=== PATIENT | female | born 1975 ===

== ENCOUNTER 2017-07-09 00:30 | Emergency (ER) | payer SELFPAY ==
[2017-07-09 00:54] VITALS: RESP 18
[2017-07-09] MEDS ORDERED: Aluminum Hydroxide/Magnesium Hydroxide Susp (30 mL) PO STA (01:41)
[2017-07-09] MEDS ORDERED: Aluminum Hydroxide/Magnesium Hydroxide Susp (30 mL) ONE (01:51)
--- NOTE | 2017-07-09 03:17 | C.PDOC ---
History Of Present Illness 41 year old female presents to the ER with a complaint of 3 episodes of vomiting and epigastric pain that began today. Patient states she was having URI symptoms for the past few days and took cough syrup at work with tap water, a few minutes later she began vomiting, patient believes it is due to contaminated water. Denies dizziness, syncope, or diarrhea. Time Seen by Provider: 07/09/17 01:09 Chief Complaint (Nursing): Abdominal Pain History Per: Patient History/Exam Limitations: no limitations Onset/Duration Of Symptoms: Hrs Current Symptoms Are (Timing): Still Present Location Of Pain/Discomfort: Epigastric Radiation Of Pain To:: None Quality Of Discomfort: Unable To Describe Associated Symptoms: Vomiting. denies: Diarrhea, Other (Dizziness, Syncope) Exacerbating Factors: None Alleviating Factors: None Last Bowel Movement: Today Recent travel outside of the [place]: No Abnormal Vaginal Bleeding: No Past Medical History Reviewed: Historical Data, Nursing Documentation, Vital Signs Vital Signs: Last Vital Signs Temp 97.7 F 07/09/17 03:41 Pulse 78 07/09/17 03:41 Resp 18 07/09/17 03:41 BP 123/85 07/09/17 03:41 Pulse Ox 98 07/09/17 03:41 - Medical History PMH: No Chronic Diseases Surgical History: No Surg Hx Family History: States: Unknown Family Hx - Social History Hx Alcohol Use: No Hx Substance Use: No - Immunization History Hx Tetanus Toxoid Vaccination: No Hx Influenza Vaccination: Yes Hx Pneumococcal Vaccination: No Review Of Systems Gastrointestinal: Positive for: Vomiting, Abdominal Pain Neurological: Negative for: Dizziness, Other (Syncope) Physical Exam - Physical Exam Appears: Non-toxic, No Acute Distress Skin: Normal Color, Warm, Dry Head: Atraumatic, Normacephalic Eye(s): bilateral: Normal Inspection Oral Mucosa: Moist Chest: Symmetrical Cardiovascular: Rhythm Regular Respiratory: Normal Breath Sounds, No Rales, No Rhonchi, No Wheezing Gastrointestinal/Abdominal: Soft, No Tenderness Neurological/Psych: Oriented x3, Normal Speech ED Course And Treatment O2 Sat by Pulse Oximetry: 100 (room air) Pulse Ox Interpretation: Normal Progress Note: Zofran administered. Patient is complaining of epigastric soreness, maalox administered. On reevaluation, patient is tolerating PO, has no tenderness, and is resting comfortably, will discharge home with instructions to follow up with PMD for further evaluation. Disposition Counseled Patient/Family Regarding: Diagnosis, Need For Followup, Rx Given - Disposition Disposition: HOME/ ROUTINE Disposition Time: 03:17 Condition: STABLE Additional Instructions: Hiral liquidos Sigue con barry doctor primario Regresa si peor Prescriptions: Ondansetron ODT [Zofran ODT] 1 odt PO BID PRN #6 odt PRN Reason: Nausea/Vomiting Instructions: Acute Nausea and Vomiting (ED) Forms: [employer] (Tanzanian) Print Language: BARBADIAN - Clinical Impression Clinical Impression: Vomiting - Scribe Statement The provider has reviewed the documentation as recorded by the Scribsuzanna Mccartney All medical record entries made by the Kimibsuzanna were at my direction and personally dictated by me. I have reviewed the chart and agree that the record accurately reflects my personal performance of the history, physical exam, medical decision making, and the department course for this patient. I have also personally directed, reviewed, and agree with the discharge instructions and disposition.
[2017-07-09 06:21] VITALS: BP 123/83; PULSE 75; TEMP 97.8; O2SAT 98
== END 2017-07-09 06:22 | disposition home or self-care (01) ==
LOC: C.ER 00:30
DX: R11.10 Vomiting, unspecified (principal)